=== PATIENT | male | born 1965 | race American Indian/Alaskan Native ===

== ENCOUNTER 2018-09-21 15:47 | Emergency (ER) | payer BC ==
--- NOTE | 2018-09-21 15:57 | Emergency Department Report ---
Blank Doc - Documentation Documentation: Comes in for Blood pressure check. 146/85. in triage. This initial assessment diagnostic orders/clinical plan/treatment (s) is/Are subject change based on patient's health status, clinical progression and re- assessment by fellow clinical providers in the ED. Further treatment and work-up at subsequent clinical providers discretion. Patient/guardians urged not to elope from their condition may be serious if not clinically assessed and managed. Initial order include:
== END 2018-09-21 16:17 | disposition left against medical advice (07) ==
LOC: ED 15:47
CPT/HCPCS: 99282